=== PATIENT | male | born 1940 | race Caucasian/White ===

== ENCOUNTER 2020-08-20 16:01 | Inpatient (IN) ==
--- NOTE | 2020-08-20 16:20 | ERNOTE ---
<Faustino Ford - Last Filed: 08/20/20 20:04> Neuro HPI ER Record Presenting Symptoms: other - syncope Time Seen by Provider: 08/20/20 16:08 Source: patient, EMS Exam Limitations: no limitations Allergies/Adverse Reactions: Allergies Allergy/AdvReac Type Severity Reaction Status Date / Time No Known Allergies Allergy Verified 08/20/20 16:08 Home Medications: HOME MEDICATIONS albuterol sulfate 90 mcg/actuation aerosol inhaler 2 puff IH Q6H PRN 03/14/18 [Last Taken Unknown] aspirin 81 mg tablet,delayed release 81 mg PO DAILY 03/14/18 [Last Taken Unknown] bimatoprost 0.01 % eye drops 1 drp OP DAILY ml 03/14/18 [Last Taken Unknown] cholecalciferol (vitamin D3) 25 mcg (1,000 unit) capsule 1,000 unit PO DAILY 03/14/18 [Last Taken Unknown] multivitamin 1 tab PO DAILY 03/14/18 [Last Taken Unknown] omega-3 fatty acids 1,000 mg capsule 1,000 mg PO DAILY 03/14/18 [Last Taken Unknown] fluticasone propionate 50 mcg/actuation nasal spray,suspension 1 spray ANTONIA DAILY #9.9 g 07/13/18 [Last Taken Unknown] fexofenadine 60 mg tablet 60 mg PO BID #60 tab 08/12/18 [Last Taken Unknown] terbinafine HCl 1 % topical cream 1 applic TP BID #30 g 04/25/19 [Last Taken Unknown] bisoprolol 10 mg-hydrochlorothiazide 6.25 mg tablet 1 tab PO DAILY #180 tab 06/16/19 [Last Taken Unknown] lovastatin 40 mg tablet See Rx Instructions .ROUTE .COMPLEX #180 unknown measurement unit code: not specified 04/03/20 [Last Taken Unknown] timolol 0.25 % eye drops 1 drp OP DAILY 06/21/20 [Last Taken Unknown] lisinopril 20 mg tablet 20 mg PO DAILY #90 tab 06/26/20 [Last Taken Unknown] glipizide 5 mg tablet 7.5 mg PO DAILY #45 tab 07/17/20 [Last Taken Unknown] blood-glucose meter See Rx Instructions .ROUTE .MEDSUPPLY #1 ea 08/08/20 [Last Taken Unknown] lancets 28 gauge See Dose Instructions .ROUTE .MEDSUPPLY #100 ea 08/09/20 [Last Taken Unknown] blood sugar diagnostic See Dose Instructions .ROUTE .MEDSUPPLY #100 ea 08/12/20 [Last Taken Unknown] traMADol HCL [Ultram] 50 - 100 mg PO QID PRN #10 tab 08/20/20 [Last Taken Unknown] - History of Present Illness Narrative: Patient states he was getting up to go to the kitchen to read and "woke up on the floor". He is not sure how long he had loss of consciousness. He was not able to get up on his own. He complains of right shoulder and right hip pain Onset: sudden onset Severity: moderate - Character of Deficits Baseline Cognition: Present: alert, oriented x 4 Baseline Gait: Present: walks w/o assistance Review of Systems - Review of Systems Constitutional: Absent: recent illness, fever, chills EYE: Absent: vision changes ENT: Absent: nose congestion, nasal drainage Respiratory: Absent: shortness of breath, cough Cardiology: Absent: chest pain, palpitations Gastrointestinal/Abdominal: Absent: nausea, vomiting Genitourinary: Absent: frequency, dysuria Musculoskeletal: Present: See HPI. 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 Guerrero; results normal History of hernia repair Onset Date: Unknown Family History: Family History (Last Reviewed 08/20/20 @ 16:14 by Faustino Ford DO) Father Myocardial infarction Diabetes Mother Myocardial infarction Diabetes Social History: (Last Reviewed 08/20/20 @ 16:14 by Faustino Ford DO) Social History: adopted: No Marital status: lives independently: Yes household members: spouse current occupational status: retired Highest level of school completed/degree received: GED or equivalent Service: No Tobacco: Smoking Status: Current every day smoker tobacco type: cigarettes Smoking cigarettes per day: 6 Alcohol: alcohol intake: current Alcohol type: beer alcohol intake frequency: a few times a month details: couple beers a month Substance Use: substance use type: does not use Dietary Habits: caffeine: Yes Exercise: frequency: does not exercise Physical Exam - Physical Exam General Appearance: Present: wd/wn, alert, no apparent distress Head Exam: Present: normal inspection, no evidence of injury Eye Exam: Normal inspection: bilateral, PERRL: bilateral Neck: Present: normal inspection, nontender, supple, full range of motion Respiratory: Present: no respiratory distress, no accessory muscle use, wheezing Cardiovascular/Chest: Present: regular rate, rhythm, no murmur Gastrointestinal/Abdominal: Present: normal bowel sounds, nontender, nondistended Extremity Exam: Present: decreased range of motion - Right shoulder and right hip, bony tenderness - Proximal right humerus and proximal right femur Neurological Exam: Present: alert, oriented, normal mood/affect, no motor/sensory deficits Skin Exam: Present: normal color, warm/dry Lymphatic Exam: Present: no adenopathy Laurie Coma Scale - Assess Eye Opening: Spontaneous Motor: Obeys Commands Verbal: Oriented - Total Coma Scale Total: 15 Progress - Results and Orders Patient's Lab Results:: I have reviewed the patient's lab results. Results and Orders: Laboratory Tests 08/20/20 08/20/20 08/20/20 16:30 16:30 17:50 WBC 14.7 H Hgb 12.8 L Hct 40.8 L Neutrophils % 70.9 Sodium 135 Potassium 4.0 Chloride 100 Carbon Dioxide 23.9 L Anion Gap 15.1 H BUN 15 Creatinine 0.65 Random Glucose 124 H Calcium 8.7 Total Bilirubin 0.3 AST 50 H ALT 75 H Albumin 2.7 L Urine Color Yellow Urine Appearance Clear Urine pH 5.5 Ur Specific Alba 1.025 Urine Protein Negative Urine Glucose (UA) Negative Urine Ketones Negative Urine Blood Negative Urine Nitrate Negative Ur Leukocyte Esterase Negative Urine Culture Comments No culture indicated Ethyl Alcohol Less than 3.0 - Vital Signs Patient's Vital Signs:: I have reviewed the patient's vital signs. - EKG EKG #1 EKG: NSR, RBBB, nonspecific ST T wave changes EKG read: Interp. by me - X-Ray X-Ray #1 X-Ray: shoulder Interpretation: Reviewed by me X-ray Comments: Findings: Diffuse decreased bony mineralization. There is an acute anterior dislocation of the glenohumeral joint. No visible fracture of the humeral head or the glenoid is appreciated on the given views. There is degenerative change of the glenoid and the AC joint. There is soft tissue swelling. IMPRESSION: ACUTE ANTERIOR DISLOCATION OF THE RIGHT SHOULDER Electronically signed by Geo Nicholas D.O.. X-Ray #2 X-Ray: hip Interpretation: Reviewed by me X-ray Comments: Findings: Diffuse decreased bony mineralization. No acute fracture or dislocation is identified. There is degenerative change of the bilateral hips, bilateral SI joints and visualized spine. No soft tissue swelling appreciated. IMPRESSION: NO ACUTE PROCESS. Electronically signed by Geo Nicholas D.O.. - CT/Ultrasound CT/Ultrasound Narrative: CT head without: Findings: There is scattered periventricular and subcortical white matter hypodensities consistent with chronic microvascular ischemic white matter disease. There is diffuse brain atrophy with associated increasing size of the CSF containing spaces. There is no acute loss of malloy-white differentiation appreciated. There is no mass effect or midline shift. No intra-axial or extra axial blood products identified. The visualized paranasal sinuses and mastoid air cells are clear. The skull base and calvarium are intact. IMPRESSION: NO ACUTE INTRACRANIAL ABNORMALITY IDENTIFIED. Electronically signed by Geo Nicholas D.O.. - Progress/Reassessment Progress:: Improved Progress Note-Subjective: 08/20/20 20:[address] Hunter and he states that if the patient cannot bear weight despite x-rays looking normal CT would be in order. - Transfer of Care Physician Sign Out: Faustino Ford Receiving Physician: Zachary Parrish Pending Results: CT/MRI results Expected Disposition: Admit Procedures Date and Time: 08/20/20 19:00 Joint Reduction Site: shoulder (R) Conscious Sedation: Yes - Per anesthesia Reduction Attempts: 2 Pre-Procedure NV Exam: Yes - Normal Post-Procedure NV Exam: Yes - Normal Post Joint Reduction Film: joint reduced Complications: Pt bo procedure well Immediate Post Procedure Note: Procedure right shoulder reduction. Physician[facility] DO, [facility] per anesthesia. Description. Patient was sedated per anesthesia. Initial reduction attempt. To reduce the shoulder but repeat shoulder films found the humeral head had moved but not back into anatomic position. Second attempt easily reduced the shoulder into anatomic position. Postreduction films confirm anatomic position of the glenohumeral joint. No fractures noted. Patient tolerated procedure well Departure Clinical Impression: Orthostatic syncope Dislocation of right shoulder joint Qualifiers: Encounter type: initial encounter Qualified Code(s): S43.004A - Unspecified dislocation of right shoulder joint, initial encounter Pelvic fracture Qualifiers: Encounter type: initial encounter Pelvic bone location: other part of pelvis Fracture type: closed Qualified Code(s): S32.89XA - Fracture of other parts of pelvis, initial encounter for closed fracture - Departure Disposition: Short Term Hospital Inpatient Condition: Good Instructions: Syncope, [id number], Shoulder Dislocation, [id number] Additional Instructions: Call orthopedics for a follow up appointment. Keep the sling on until you are seen by orthopedics. Make sure you stand up slowly and carefully and do not start walking until you have stood for couple of minutes. Referrals: Monie Knight MD [Primary Care Provider] - Jason Hunter MD [Staff Physician] - Prescriptions: traMADol HCL [Ultram] 50 - 100 mg PO QID PRN #10 tab PRN Reason: Pain Transmission Status: Received by [facility], [place], [place] <Zachary Parrish - Last Filed: 08/20/20 21:10> Neuro HPI ER Record Immunizations: IMMUNIZATION HX Immunizations Up to Date Yes History of Influenza Vaccine Yes Hx Pneumococcal Vaccination No Medical History (Last Reviewed 08/20/20 @ 16:14 by Faustino Ford DO) Diarrhea (Acute) BMI 32.0-32.9,adult (Chronic) Cellulitis (Acute) Has received influenza vaccination in current influenza season (Acute) Onset Date: 07/18/18 Hypertension (Chronic) Diabetes mellitus (Chronic) BPH (benign prostatic hyperplasia) (Chronic) Hypercholesteremia (Chronic) 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 Guerrero; results normal History of hernia repair Onset Date: Unknown Family History: Family History (Last Reviewed 08/20/20 @ 16:14 by Faustino Ford DO) Father Myocardial infarction Diabetes Mother Myocardial infarction Diabetes Social History: (Last Reviewed 08/20/20 @ 16:14 by Faustino Ford DO) Social History: adopted: No Marital status: lives independently: Yes household members: spouse current occupational status: retired Highest level of school completed/degree received: GED or equivalent Service: No Tobacco: Smoking Status: Current every day smoker tobacco type: cigarettes Smoking cigarettes per day: 6 Alcohol: alcohol intake: current Alcohol type: beer alcohol intake frequency: a few times a month details: couple beers a month Substance Use: substance use type: does not use Dietary Habits: caffeine: Yes Exercise: frequency: does not exercise Progress - Vital Signs Vital Signs: Vital Signs 08/20/20 16:01 08/20/20 17:30 08/20/20 18:00 Temperature 36.1 C Pulse Rate 60 69 74 Respiratory Rate 18 16 16 Blood Pressure 129/69 160/71 H 161/71 H O2 Sat by Pulse Oximetry 92 L 94 93 08/20/20 18:30 08/20/20 18:58 08/20/20 19:09 Temperature Pulse Rate 76 72 92 Respiratory Rate 16 16 16 Blood Pressure 139/69 151/69 H 142/64 O2 Sat by Pulse Oximetry 96 96 96 08/20/20 19:30 08/20/20 20:55 Temperature Pulse Rate 82 68 Respiratory Rate 16 16 Blood Pressure 155/80 H 131/68 O2 Sat by Pulse Oximetry 96 96 - Transfer of Care Pending Results: CT/MRI results - CT results show inferior pubic ramus fracture as well as an acetabular fracture of the superior pubic ramus. Orthopedics on- call was sent a [employer] message to notify that the patient would be admitted to [facility]. I discussed case with Dr. Baron who accepted care. Plan - Plan Plan: Patient for admission to medicine for pain management as well as physical therapy Dr. Baron notified and accepted. Message sent via [employer] to Dr. Hunter on-call for orthopedics to notify them of the admission
[2020-08-20 16:39] LABS: Hematocrit 40.8 % (42.0-52.0); Hemoglobin 12.8 gm/dL (13.5-18.0); Mean Cell Volume 93.8 fl (78-100); Mean Corpuscular Hemoglobin 29.4 pg (27-31); Mean Corpuscular Hgb Conc 31.4 g/dl (32-36); Mean Platelet Volume 9.6 fl (8-11.3); Neutrophil # 10.5 K/mm3 (1.3-6.0); Neutrophil % 70.9 % (42-75.0); Platelet Count 249 K/mm3 (150-450); Red Blood Count 4.35 M/mm3 (4.7-6.0); Red Cell Distribution Width 12.4 % (11.5-14.0); White Blood Count 14.7 K/mm3 (4.0-10.5)
[2020-08-20 16:51] LABS: AST 50 U/L (0-48); Albumin * 2.7 gm/dl (3.4-5.0); Alkaline Phosphatase * 68 U/L (50-170); Anion Gap 15.1 mmol/L (6.8-13.8); BUN/Creatinine Ratio 23.1 (9.0-21.6); Bilirubin, Total 0.3 mg/dL (0.0-1.1); Blood Urea Nitrogen 15 mg/dL (6-23); Ca. Corrected For Albumin 9.4 mg/dL (8.4-10.2); Calcium * 8.7 mg/dL (7.9-10.9); Carbon Dioxide 23.9 mmol/L (24-32.6); Chloride 100 mmol/L (97-106); Glucose * 124 mg/dL (70-110); Sodium 135 mmol/L (132-142); Total Protein 6.6 gm/dL (6.2-8.2)
[2020-08-20] MEDS ORDERED: ONDANSETRON HCL/PF 2 MG/ML VIAL IV ONE ×2 (17:07→20:22)
[2020-08-20] MEDS ORDERED: MORPHINE SULFATE 2 MG/ML DISP.SYRIN ONE (17:07)
[2020-08-20] MEDS ORDERED: MORPHINE SULFATE 2 MG/ML DISP.SYRIN IV ONE (17:07)
[2020-08-20] MEDS ORDERED: ONDANSETRON HCL/PF 2 MG/ML VIAL ONE (17:08)
[2020-08-20 17:58] LABS: Urine Bilirubin Negative (NEGATIVE); Urine Blood Negative /ul (NEGATIVE); Urine Ketone Negative (NEGATIVE); Urine Nitrite Negative (NEGATIVE); Urine Protein Negative (NEGATIVE); Urine Specific Gravity 1.025 SP.GR. (1.005-1.030); Urine Urobilinogen Normal (NORMAL); Urine pH 5.5 pH (5.0-7.0)
[2020-08-20 18:25] LABS: Urine Appearance Clear (CLEAR); Urine Bacteria TRACE; Urine Color Yellow; Urine RBC TRACE /hpf (0-5); Urine WBC TRACE /hpf (0-5)
[2020-08-20 18:32] LABS: ALT 75 U/L (19-67)
--- NOTE | 2020-08-20 19:00 | ANES ---
Anesthesia Pre Procedure Eval Vitals/Labs: Last Vital Signs Temp 36.1 C 08/20/20 16:01 Pulse 72 08/20/20 18:58 Resp 16 08/20/20 18:58 BP 151/69 H 08/20/20 18:58 Pulse Ox 96 08/20/20 18:58 HOME MEDICATIONS albuterol sulfate 90 mcg/actuation aerosol inhaler 2 puff IH Q6H PRN 03/14/18 [Last Taken Unknown] aspirin 81 mg tablet,delayed release 81 mg PO DAILY 03/14/18 [Last Taken Unknown] bimatoprost 0.01 % eye drops 1 drp OP DAILY ml 03/14/18 [Last Taken Unknown] cholecalciferol (vitamin D3) 25 mcg (1,000 unit) capsule 1,000 unit PO DAILY 03/14/18 [Last Taken Unknown] multivitamin 1 tab PO DAILY 03/14/18 [Last Taken Unknown] omega-3 fatty acids 1,000 mg capsule 1,000 mg PO DAILY 03/14/18 [Last Taken Unknown] fluticasone propionate 50 mcg/actuation nasal spray,suspension 1 spray ANTONIA DAILY #9.9 g 07/13/18 [Last Taken Unknown] fexofenadine 60 mg tablet 60 mg PO BID #60 tab 08/12/18 [Last Taken Unknown] terbinafine HCl 1 % topical cream 1 applic TP BID #30 g 04/25/19 [Last Taken Unknown] bisoprolol 10 mg-hydrochlorothiazide 6.25 mg tablet 1 tab PO DAILY #180 tab 06/16/19 [Last Taken Unknown] lovastatin 40 mg tablet See Rx Instructions .ROUTE .COMPLEX #180 unknown measurement unit code: not specified 04/03/20 [Last Taken Unknown] timolol 0.25 % eye drops 1 drp OP DAILY 06/21/20 [Last Taken Unknown] lisinopril 20 mg tablet 20 mg PO DAILY #90 tab 06/26/20 [Last Taken Unknown] glipizide 5 mg tablet 7.5 mg PO DAILY #45 tab 07/17/20 [Last Taken Unknown] blood-glucose meter See Rx Instructions .ROUTE .MEDSUPPLY #1 ea 08/08/20 [Last Taken Unknown] lancets 28 gauge See Dose Instructions .ROUTE .MEDSUPPLY #100 ea 08/09/20 [Last Taken Unknown] blood sugar diagnostic See Dose Instructions .ROUTE .MEDSUPPLY #100 ea 08/12/20 [Last Taken Unknown] Allergies/Adverse Reactions: Allergies Allergy/AdvReac Type Severity Reaction Status Date / Time No Known Allergies Allergy Verified 08/20/20 16:08 - Planned Procedure Planned Procedure: closed reduction rt shoulder Medication List Reviewed:: Yes Allergies Verified: Yes Medical History (Last Reviewed 08/20/20 @ 18:59 by Mil Winston CRNA) Diarrhea (Acute) BMI 32.0-32.9,adult (Chronic) Cellulitis (Acute) Has received influenza vaccination in current influenza season (Acute) Onset Date: 07/18/18 Hypertension (Chronic) Diabetes mellitus (Chronic) BPH (benign prostatic hyperplasia) (Chronic) Hypercholesteremia (Chronic) 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 Guerrero; results normal History of hernia repair Onset Date: Unknown Family History (Last Reviewed 08/20/20 @ 18:59 by Mil Winston CRNA) Father Diabetes Myocardial infarction Mother Diabetes Myocardial infarction - Family Anesthesia History Family History:: no untoward family reactions to anesthesia - Airway/Neck/Teeth Within Normal Limits:: Yes Teeth Condition: intact Neck Exam: full range of motion Mallampatti Score: 2 Thyromental (T-M) distance: > 6 cm Mandibulo Hyoid distance: > 3 cm - Respiratory Respiratory History: COPD Smoking Status: Current every day smoker Discussed smoking cessation including day of surgery: Yes Sleep Apnea currently treated: No Sleep Apnea by current assessment: No - Cardiovascular Cardiac History: hypertension, hyperlipidemia Tolerate Activity: Poor Heart Sounds: S1 & S2, Regular - Gastrointestinal NPO since: 1100 - Anesthesia Assessment and Plan ASA Class: PS, III, E Anesthesia Type Plan: MAC Planned difficult intubation/equipment available: No
--- NOTE | 2020-08-20 19:00 | ANES ---
Post Anesthesia Discharge - Transfer of Care Transfer of Care handoff given to nurse: Yes - Anesthesia Post Op Note Anesthesia Post Op Note: Care transferred to EGG SEPARATOR
--- NOTE | 2020-08-20 19:01 | ANES ---
Post Anesthesia Assessment - Vital Signs Vitals: Last Vital Signs Temp 36.1 C 08/20/20 16:01 Pulse 72 08/20/20 18:58 Resp 16 08/20/20 18:58 BP 151/69 H 08/20/20 18:58 Pulse Ox 96 08/20/20 18:58 Airway Patency: Normal - Mental Status Level Of Consciousness: Awake - Pain Level Pain Score: 2 - N/V Assessment Nausea/Vomiting Presence: None Dehydration:: No
[2020-08-20] MEDS ORDERED: traMADol HCL 50 MG TABLET PO ONE (19:09)
[2020-08-20] MEDS ORDERED: MORPHINE SULFATE 4 MG/ML SYRG IV ONE (20:22)
[2020-08-21] MEDS: oxyCODONE HCL/ACETAMINOPHEN 1 TAB TABLET PO PRN ×3 (07:30→19:35)
--- NOTE | 2020-08-21 14:13 | HP ---
Chief Complaint - Chief Complaint Date of Service: 08/21/20 Time of Service: 09:00 Chief Complaint: Fall, hip pain, shoulder pain History of Present Illness: Dave was seen in the ER after a fall with right shoulder pain and bilateral hip pain. Imaging in the ER showed right shoulder dislocation and "1. ACUTE FRACTURE OF THE RIGHT INFERIOR PUBIC RAMI WITH MINIMAL DISPLACEMENT. 2. ACUTE NONDISPLACED FRACTURE OF THE ANTERIOR INFERIOR RIGHT ACETABULUM NEAR THE SUPERIOR PUBIC RAMI JUNCTION." Shoulder was reduced in the ER and he was placed in a shoulder sling. Imaging were discussed with orthopedics who report patient may be weight bearing as tolerated and may be admitted for therapy and pain control. He denies any other medical concerns. He reports slipping and falling and no medical concerns for his fall. He reports pain is 6/10. 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 Guerrero; results normal History of hernia repair Onset Date: Unknown Family History: Family History (Last Reviewed 08/20/20 @ 22:52 by Mariajose Rosales RN) Father Diabetes Myocardial infarction Mother Diabetes Myocardial infarction Social History: (Last Reviewed 08/20/20 @ 22:52 by Mariajose Rosales RN) Social History: adopted: No Marital status: lives independently: Yes household members: spouse current occupational status: retired Highest level of school completed/degree received: GED or equivalent Service: No Tobacco: Smoking Status: Current every day smoker tobacco type: cigarettes Smoking cigarettes per day: 6 Alcohol: alcohol intake: current Alcohol type: beer alcohol intake frequency: a few times a month details: couple beers a month Substance Use: substance use type: does not use Dietary Habits: caffeine: Yes Exercise: frequency: does not exercise Review Of Systems (GEN) - Review of Systems Generalized/Overall Review: Present: Weakness. Absent: Chills, Fever EENTM: Present: No Symptoms Reported Respiratory: Absent: Cough, Shortness of Breath Cardiac: Absent: Chest Pain, Edema Abdominal: Absent: Nausea, Vomiting Genitourinary: Present: No Symptoms Reported Musculoskeletal: Present: Joint Pain Neurological: Present: No Symptoms Reported Skin: Present: No Symptoms Reported Endocrine: Present: No Symptoms Reported Immunizations: IMMUNIZATION HX Immunizations Up to Date Yes History of Influenza Vaccine Yes Hx Pneumococcal Vaccination No Allergies/Adverse Reactions: Allergies Allergy/AdvReac Type Severity Reaction Status Date / Time No Known Allergies Allergy Verified 08/20/20 16:08 Home Medications: HOME MEDICATIONS aspirin 81 mg tablet,delayed release 81 mg PO DAILY 03/14/18 [Last Taken Un known] bimatoprost 0.01 % eye drops 1 drp OP DAILY ml 03/14/18 [Last Taken Unknown] cholecalciferol (vitamin D3) 25 mcg (1,000 unit) capsule 1,000 unit PO DAILY 03/14/18 [Last Taken Unknown] bisoprolol 10 mg-hydrochlorothiazide 6.25 mg tablet 1 tab PO DAILY #180 tab 06/16/19 [Last Taken Unknown] lovastatin 40 mg tablet See Rx Instructions .ROUTE .COMPLEX #180 unknown measurement unit code: not specified 04/03/20 [Last Taken Unknown] timolol 0.25 % eye drops 1 drp OP DAILY 06/21/20 [Last Taken Unknown] lisinopril 20 mg tablet 20 mg PO DAILY #90 tab 06/26/20 [Last Taken Unknown] glipizide 5 mg tablet 7.5 mg PO DAILY #45 tab 07/17/20 [Last Taken Unknown] blood-glucose meter See Rx Instructions .ROUTE .MEDSUPPLY #1 ea 08/08/20 [Last Taken Unknown] lancets 28 gauge See Dose Instructions .ROUTE .MEDSUPPLY #100 ea 08/09/20 [Last Taken Unknown] blood sugar diagnostic See Dose Instructions .ROUTE .MEDSUPPLY #100 ea 08/12/20 [Last Taken Unknown] Exam - Exam Vital Signs: Vital Signs - Last Taken Temp 36.3 C 08/21/20 10:00 Pulse 73 08/21/20 10:00 Resp 22 H 08/21/20 10:00 BP 127/58 08/21/20 10:00 Pulse Ox 88 L 08/21/20 10:00 Constitutional: Present: Alert, Oriented x3, Cooperative ENT Exam: Present: hearing grossly normal Eye Exam: bilateral eye: normal inspection Respiratory: Present: lungs clear, normal breath sounds, no respiratory distress Cardiovascular/Chest: Present: regular rate, rhythm, no edema Peripheral Pulses: radial (R): 2+, radial (L): 2+ Abdomen: Present: Normal bowel sounds, soft, nontender, nondistended, no rebound tenderness Skin Exam: Present: normal color, warm/dry, no cyanosis Appearance: Present: appropriate appearance, appropriate insight Eye contact: Present: cooperative, good eye contact, normal speech Thoughts: Present: normal thought pattern, no apparent hallucination Diagnostic Studies: Abnormal Lab Results 08/20/20 08/20/20 Range/Units 16:30 16:30 WBC 14.7 H (4.0-10.5) K/mm3 RBC 4.35 L (4.7-6.0) M/mm3 Hgb 12.8 L (13.5-18.0) gm/dL Hct 40.8 L (42.0-52.0) % MCHC 31.4 L (32-36) g/dl Immature Gran % (Auto) 1.40 H (0.001-0.429) % Immature Gran # (Auto) 0.20 H (0.000-0.0310) K/mm3 Lymphocytes % 16.8 L (20-51) % Monocytes % 9.2 H (0.0-9) % Neutrophils # 10.5 H (1.3-6.0) K/mm3 Monocytes # 1.4 H (0.0-1.0) k/mm3 Carbon Dioxide 23.9 L (24-32.6) mmol/L Anion Gap 15.1 H (6.8-13.8) mmol/L BUN/Creatinine Ratio 23.1 H (9.0-21.6) Random Glucose 124 H (70-110) mg/dL AST 50 H (0-48) U/L ALT 75 H (19-67) U/L Albumin 2.7 L (3.4-5.0) gm/dl Laboratory Results WBC 14.7 K/mm3 (4.0-10.5) H 08/20/20 16:30 RBC 4.35 M/mm3 (4.7-6.0) L 08/20/20 16:30 Hgb 12.8 gm/dL (13.5-18.0) L 08/20/20 16:30 Hct 40.8 % (42.0-52.0) L 08/20/20 16:30 MCV 93.8 fl (78-100) 08/20/20 16:30 MCH 29.4 pg (27-31) 08/20/20 16:30 MCHC 31.4 g/dl (32-36) L 08/20/20 16:30 RDW 12.4 % (11.5-14.0) 08/20/20 16:30 Plt Count 249 K/mm3 (150-450) 08/20/20 16:30 MPV 9.6 fl (8-11.3) 08/20/20 16:30 Immature Gran % (Auto) 1.40 % (0.001-0.429) H 08/20/20 16:30 Immature Gran # (Auto) 0.20 K/mm3 (0.000-0.0310) H 08/20/20 16:30 Neutrophils % 70.9 % (42-75.0) 08/20/20 16:30 Lymphocytes % 16.8 % (20-51) L 08/20/20 16:30 Monocytes % 9.2 % (0.0-9) H 08/20/20 16:30 Eosinophils % 1.0 % (0.0-3.0) 08/20/20 16:30 Basophils % 0.7 % (0.0-1.0) 08/20/20 16:30 Nucleated RBC % 0.0 k/mm3 (0-1) 08/20/20 16:30 Neutrophils # 10.5 K/mm3 (1.3-6.0) H 08/20/20 16:30 Lymphocytes # 2.47 k/mm3 (1.5-3.5) 08/20/20 16:30 Monocytes # 1.4 k/mm3 (0.0-1.0) H 08/20/20 16:30 Eosinophils # 0.1 k/mm3 (0.0-0.7) 08/20/20 16:30 Absolute Basophils 0.1 k/mm3 (0.0-0.1) 08/20/20 16:30 Sodium 135 mmol/L (132-142) 08/20/20 16:30 Plasma Sodium 135 mmol/L (130-142) 08/20/20 16:30 Potassium 4.0 mmol/L (3.4-4.6) 08/20/20 16:30 Chloride 100 mmol/L (97-106) 08/20/20 16:30 Carbon Dioxide 23.9 mmol/L (24-32.6) L 08/20/20 16:30 Anion Gap 15.1 mmol/L (6.8-13.8) H 08/20/20 16:30 BUN 15 mg/dL (6-23) 08/20/20 16:30 Creatinine 0.65 mg/dL (0.4-1.4) 08/20/20 16:30 Est GFR (Non-Af Amer) 126 mL/min (60-130) D 08/20/20 16:30 BUN/Creatinine Ratio 23.1 (9.0-21.6) H 08/20/20 16:30 Random Glucose 124 mg/dL (70-110) H 08/20/20 16:30 Calcium 8.7 mg/dL (7.9-10.9) 08/20/20 16:30 Calcium Adj for Albumin 9.4 mg/dL (8.4-10.2) 08/20/20 16:30 Total Bilirubin 0.3 mg/dL (0.0-1.1) 08/20/20 16:30 AST 50 U/L (0-48) H 08/20/20 16:30 ALT 75 U/L (19-67) H 08/20/20 16:30 Alkaline Phosphatase 68 U/L (50-170) 08/20/20 16:30 Total Protein 6.6 gm/dL (6.2-8.2) 08/20/20 16:30 Albumin 2.7 gm/dl (3.4-5.0) L 08/20/20 16:30 Urine Color Yellow 08/20/20 17:50 Urine Appearance Clear (CLEAR) 08/20/20 17:50 Urine pH 5.5 pH (5.0-7.0) 08/20/20 17:50 Ur Specific [place] 1.025 SP.GR. (1.005-1.030) 08/20/20 17:50 Urine Protein Negative mg/dL (NEGATIVE) 08/20/20 17:50 Urine Glucose (UA) Negative mg/dL (NEGATIVE) 08/20/20 17:50 Urine Ketones Negative mg/dL (NEGATIVE) 08/20/20 17:50 Urine Blood Negative /ul (NEGATIVE) 08/20/20 17:50 Urine Nitrate Negative (NEGATIVE) 08/20/20 17:50 Urine Bilirubin Negative mg/dl (NEGATIVE) 08/20/20 17:50 Urine Urobilinogen Normal EU/dl (NORMAL) 08/20/20 17:50 Ur Leukocyte Esterase Negative /ul (NEGATIVE) 08/20/20 17:50 Urine RBC Trace /hpf (0-5) 08/20/20 17:50 Urine WBC Trace /hpf (0-5) 08/20/20 17:50 Ur Epithelial Cells Trace /hpf (0-5) 08/20/20 17:50 Urine Bacteria Trace (NONE) 08/20/20 17:50 Urine Culture Comments No culture indicated 08/20/20 17:50 Ethyl Alcohol Less than 3.0 mg/dL (0.0-10.0) 08/20/20 16:30 SARS-CoV-2 (PCR) Not detected (NotDetected) 08/20/20 20:51 Assessment/Plan - Narrative Narrative: Dave is an 79 yo male admitted for fall with right shoulder dislocation and hill sachs and bankart fractures along with pubic rami fractures. Will admit to observation for pain control and will consult therapy. Will evaluate to see if he may be discharged to home vs need rehab at nursing facility. - Assessment/Plan (1) Dislocation of right shoulder joint Problem: Acute Qualifiers: Encounter type: initial encounter Qualified Code(s): S43.004A - Unspecified dislocation of right shoulder joint, initial encounter (2) Pelvic fracture Problem: Acute Qualifiers: Encounter type: initial encounter Pelvic bone location: other part of pelvis Fracture type: closed Qualified Code(s): S32.89XA - Fracture of other parts of pelvis, initial encounter for closed fracture
[2020-08-21] MEDS: traZODone HCL 50 MG TABLET PO SCH (20:24)
[2020-08-21] MEDS: hydrOXYzine HCL 25 MG TABLET PO PRN (22:41)
[2020-08-21] MEDS ORDERED: BISOPROLOL PO ONE (22:45)
[2020-08-21] MEDS ORDERED: LISINOPRIL 20 MG TABLET PO ONE (22:45)
[2020-08-21] MEDS ORDERED: HYDROCHLOROTHIAZIDE PO ONE (22:45)
[2020-08-22] MEDS: oxyCODONE HCL/ACETAMINOPHEN 1 TAB TABLET PO PRN ×2 (02:30→20:53)
[2020-08-22] MEDS: glipiZIDE 5 MG TABLET PO SCH ×2 (07:27→10:08)
[2020-08-22] MEDS ORDERED: LISINOPRIL 20 MG TABLET PO SCH (09:00)
[2020-08-22] MEDS ORDERED: TIMOLOL MALEATE 50 DROP BTL EACHEYE SCH (09:00)
[2020-08-22 09:07] LABS: Albumin * 2.5 gm/dl (3.4-5.0); Anion Gap 10.5 mmol/L (6.8-13.8); BUN/Creatinine Ratio 16.5 (9.0-21.6); Bilirubin, Total 0.8 mg/dL (0.0-1.1); Ca. Corrected For Albumin 9.9 mg/dL (8.4-10.2); Hematocrit 39.1 % (42.0-52.0); Hemoglobin 12.3 gm/dL (13.5-18.0); Mean Cell Volume 93.5 fl (78-100); Mean Corpuscular Hemoglobin 29.4 pg (27-31); Mean Corpuscular Hgb Conc 31.5 g/dl (32-36); Mean Platelet Volume 10.2 fl (8-11.3); Platelet Count 268 K/mm3 (150-450); Potassium 3.5 mmol/L (3.4-4.6); Red Blood Count 4.18 M/mm3 (4.7-6.0); Red Cell Distribution Width 12.8 % (11.5-14.0); Total Protein 6.5 gm/dL (6.2-8.2); White Blood Count 18.7 K/mm3 (4.0-10.5)
[2020-08-22 09:10] LABS: Total Cells Counted 100
[2020-08-22 09:22] LABS: Band 2 % (0-2.0); Lymphocyte 8 % (20-51); Monocyte 7 % (0-9); Neutrophil 83 % (42-75); Neutrophil # 15.5 K/mm3 (1.3-6.0); Platelet Estimate Normal (NORMAL); RBC Morphology Normal (NORMAL)
[2020-08-22] MEDS: CHOLECALCIFEROL 1,000 UNIT CAPSULE PO SCH (10:05)
[2020-08-22] MEDS: ROSUVASTATIN CALCIUM 10 MG TABLET PO SCH (10:06)
[2020-08-22] MEDS: ASPIRIN 81 MG TABLET.DR PO SCH (10:06)
[2020-08-22] MEDS: BISOPROLOL PO SCH (10:08)
[2020-08-22] MEDS: LISINOPRIL 20 MG TABLET PO SCH (10:08)
[2020-08-22] MEDS: HYDROCHLOROTHIAZIDE PO SCH (10:08)
[2020-08-22] MEDS: DEXTROSE 5%-0.5 NORMAL SALINE 1,000 ML IV PRN (10:30)
[2020-08-22] MEDS ORDERED: AZITHROMYCIN 250 MG TABLET PO ONE (11:09)
[2020-08-22] MEDS: BIMATOPROST 25 DROP BTL OP SCH (12:32)
[2020-08-22] MEDS: ALBUTEROL SULFATE/IPRATROPIUM 3 ML NEBU IH SCH ×3 (12:43→18:16)
[2020-08-22] MEDS: TIMOLOL MALEATE 50 DROP BTL EACHEYE SCH (20:09)
[2020-08-22] MEDS: traZODone HCL 50 MG TABLET PO SCH (20:10)
[2020-08-22] MEDS: hydrOXYzine HCL 25 MG TABLET PO PRN (20:53)
--- NOTE | 2020-08-22 21:17 | PN ---
Subjective - Date and Time Seen Date: 08/22/20 Time: 16:00 Subjective Narrative: Dave had an episode of respiratory failure with hypoxia of 86% and blood pressure of 82/44. His WBC annika from 14k to 18k. He was placed on oxygen and a chest xray was obtained that showed right medial lung base pneumonia. He was started on rocephin/azithromycin, duonebs, cornet/incentive spirometer, and oxygen. His oral intake had been poor, he was given blood pressure medication overnight due to hypertension, and he was given pain medications due to fractures. He reports he has had a cough for weeks, but it has worsened in the last week. Objective - Vitals Vitals: Last Vital Signs Temp 36.5 C 08/22/20 18:00 Pulse 86 08/22/20 18:26 Resp 20 08/22/20 18:26 BP 128/57 08/22/20 18:00 Pulse Ox 93 08/22/20 18:16 - Abnormal Lab Findings Abnormal Lab Findings: Abnormal Lab Results 08/22/20 08/22/20 Range/Units 08:26 08:26 WBC 18.7 H D (4.0-10.5) K/mm3 RBC 4.18 L (4.7-6.0) M/mm3 Hgb 12.3 L (13.5-18.0) gm/dL Hct 39.1 L (42.0-52.0) % MCHC 31.5 L (32-36) g/dl Neutrophils % (Manual) 83 H (42-75) % Lymphocytes % (Manual) 8 L (20-51) % Neutrophils # (Manual) 15.5 H (1.3-6.0) K/mm3 Monocytes # (Manual) 1.3 H (0.0-1.0) k/mm3 Est GFR (Non-Af Amer) 55 L D (60-130) mL/min Random Glucose 180 H D (70-110) mg/dL AST 170 H (0-48) U/L Albumin 2.5 L (3.4-5.0) gm/dl - Exam Constitutional: Present: Alert, Oriented x3, Cooperative, Other - wearing right shoulder sling ENT Exam: Present: hearing grossly normal Respiratory: Present: rhonchi Cardiovascular/Chest: Present: regular rate, rhythm, no murmur Abdomen: Present: Normal bowel sounds, soft, nontender, nondistended Skin Exam: Present: normal color, warm/dry, no cyanosis Appearance: Present: appropriate appearance, appropriate insight Eye contact: Present: cooperative, good eye contact, normal speech Thoughts: Present: normal thought pattern, no apparent hallucination Assessment/Plan Plan Narrative: Dave is an 79 yo male with acute respiratory failure secondary to right middle lobe pneumonia. He was started on rocephin/azithromycin, oxygen to keep sats 90% or greater, scheduled duonebs every 6 hours, cornet, and incentive spirometer. I believe his pneumonia was developing over the last few weeks and likely contributed to his fall which caused him to fracture his pelvis and dislocate his right shoulder. He was hypotensive this morning but it was secondary to hypertensive medication he was given last night, decrease in his oral intake, and narcotics given for pain control. This was treated with fluids and holding his hypertension medications. I do not believe he has sepsis. Some findings of inflammatory response may be from the pneumonia but it is also complicated by his fractures causing pain and a reaction to poor oral intake and his pain medications. He was changed to inpatient status today as he failed outpatient treatment and has identified acute respiratory failure seconcdary to pneumonia which will require inpatient treatment. Anticipate he will need about 4 more days to treat pneumonia and wean from oxygen as well as strengthen from pelvic fractures. He may likely need skilled rehab following inpatient treatment for strengthening prior to returning home. - Problems/Diagnosis (1) Acute respiratory failure with hypoxia Problem: Acute (2) Right middle lobe pneumonia Problem: Acute Qualifiers: Pneumonia type: due to unspecified organism Qualified Code(s): J18.9 - Pneumonia, unspecified organism (3) Hypotension Problem: Acute Qualifiers: Hypotension type: hypotension due to drug Qualified Code(s): I95.2 - Hypotension due to drugs (4) Dislocation of right shoulder joint Problem: Acute Qualifiers: Encounter type: initial encounter Qualified Code(s): S43.004A - Unspecified dislocation of right shoulder joint, initial encounter (5) Pelvic fracture Problem: Acute Qualifiers: Encounter type: initial encounter Pelvic bone location: other part of pelvis Fracture type: closed Qualified Code(s): S32.89XA - Fracture of other parts of pelvis, initial encounter for closed fracture (6) Type II diabetes mellitus Problem: Chronic Qualifiers: Diabetes mellitus correction insulin use: without correction use Diabetes mellitus complication status: without complication Qualified Code(s): E11.9 - Type 2 diabetes mellitus without complications
[2020-08-23] MEDS: DEXTROSE 5%-0.5 NORMAL SALINE 1,000 ML IV PRN (00:02)
[2020-08-23] MEDS: ALBUTEROL SULFATE/IPRATROPIUM 3 ML NEBU IH SCH ×4 (00:30→18:06)
[2020-08-23] MEDS ORDERED: FUROSEMIDE 10 MG/ML VIAL IV ONE (03:31)
[2020-08-23 06:43] LABS: Hematocrit 34.1 % (42.0-52.0); Hemoglobin 11.1 gm/dL (13.5-18.0); Mean Cell Volume 90.9 fl (78-100); Mean Corpuscular Hemoglobin 29.6 pg (27-31); Mean Corpuscular Hgb Conc 32.6 g/dl (32-36); Mean Platelet Volume 10.1 fl (8-11.3); Neutrophil # 11.1 K/mm3 (1.3-6.0); Neutrophil % 75.6 % (42-75.0); Platelet Count 227 K/mm3 (150-450); Red Blood Count 3.75 M/mm3 (4.7-6.0); Red Cell Distribution Width 12.8 % (11.5-14.0); White Blood Count 14.7 K/mm3 (4.0-10.5)
[2020-08-23 06:44] LABS: Total Cells Counted 100
[2020-08-23 06:51] LABS: Albumin * 2.2 gm/dl (3.4-5.0); Anion Gap 11.8 mmol/L (6.8-13.8); BUN/Creatinine Ratio 26.4 (9.0-21.6); Bilirubin, Total 0.9 mg/dL (0.0-1.1); Ca. Corrected For Albumin 9.5 mg/dL (8.4-10.2); Calcium * 8.4 mg/dL (7.9-10.9); Carbon Dioxide 29.7 mmol/L (24-32.6); Potassium 3.5 mmol/L (3.4-4.6); Total Protein 5.7 gm/dL (6.2-8.2)
[2020-08-23 07:37] LABS: Basophil 1 % (0-1); Lymphocyte 8 % (20-51); Monocyte 9 % (0-9); Neutrophil 82 % (42-75); Neutrophil # 12.1 K/mm3 (1.3-6.0); Platelet Estimate Normal (NORMAL); RBC Morphology Normal (NORMAL)
[2020-08-23] MEDS: oxyCODONE HCL/ACETAMINOPHEN 1 TAB TABLET PO PRN (07:44)
[2020-08-23] MEDS: glipiZIDE 5 MG TABLET PO SCH ×2 (07:44→10:36)
[2020-08-23] MEDS: BIMATOPROST 25 DROP BTL OP SCH (10:35)
[2020-08-23] MEDS: CHOLECALCIFEROL 1,000 UNIT CAPSULE PO SCH (10:36)
[2020-08-23] MEDS: ROSUVASTATIN CALCIUM 10 MG TABLET PO SCH (10:37)
[2020-08-23] MEDS: ASPIRIN 81 MG TABLET.DR PO SCH (10:37)
[2020-08-23] MEDS: AZITHROMYCIN 250 MG TABLET PO SCH (10:37)
[2020-08-23] MEDS: LISINOPRIL 20 MG TABLET PO SCH (10:42)
[2020-08-23] MEDS: HYDROCHLOROTHIAZIDE PO SCH (10:43)
[2020-08-23] MEDS: BISOPROLOL PO SCH (10:43)
--- NOTE | 2020-08-23 15:07 | PN ---
Subjective - Date and Time Seen Date: 08/23/20 Time: 11:45 Subjective Narrative: Dave reports not feeling any better today. No appetite. No energy to work with therapy. Nursing reports he declined lunch and only ate bites for breakfast. He is reportedly sleeping a lot. No fever, chills, nausea, or vomiting. Objective - Vitals Vitals: Last Vital Signs Temp 37.3 C 08/23/20 14:17 Pulse 88 08/23/20 14:17 Resp 20 08/23/20 14:17 BP 98/54 08/23/20 14:17 Pulse Ox 94 08/23/20 14:17 - Abnormal Lab Findings Abnormal Lab Findings: Abnormal Lab Results 08/23/20 08/23/20 Range/Units 06:33 06:33 WBC 14.7 H D (4.0-10.5) K/mm3 RBC 3.75 L (4.7-6.0) M/mm3 Hgb 11.1 L (13.5-18.0) gm/dL Hct 34.1 L (42.0-52.0) % Immature Gran % (Auto) 0.70 H (0.001-0.429) % Immature Gran # (Auto) 0.10 H (0.000-0.0310) K/mm3 Neutrophils % 75.6 H (42-75.0) % Neutrophils % (Manual) 82 H (42-75) % Lymphocytes % 10.9 L (20-51) % Lymphocytes % (Manual) 8 L (20-51) % Monocytes % 11.3 H (0.0-9) % Neutrophils # 11.1 H (1.3-6.0) K/mm3 Neutrophils # (Manual) 12.1 H (1.3-6.0) K/mm3 Lymphocytes # (Manual) 1.2 L (1.5-3.5) k/mm3 Monocytes # 1.7 H (0.0-1.0) k/mm3 Monocytes # (Manual) 1.3 H (0.0-1.0) k/mm3 BUN 24 H (6-23) mg/dL BUN/Creatinine Ratio 26.4 H (9.0-21.6) AST 194 H (0-48) U/L Total Protein 5.7 L (6.2-8.2) gm/dL Albumin 2.2 L (3.4-5.0) gm/dl - Exam Constitutional: Present: Oriented x3, Cooperative, Somnolent Respiratory: Present: rhonchi, wheezing Cardiovascular/Chest: Present: regular rate, rhythm, no murmur Abdomen: Present: Normal bowel sounds, soft, nontender, nondistended, no rebound tenderness Skin Exam: Present: normal color, warm/dry, no cyanosis Appearance: Present: appropriate appearance, appropriate insight Eye contact: Present: cooperative, good eye contact, normal speech Assessment/Plan Plan Narrative: He has decreased alertness and strength. His WBC is improved from 18k to 14k. I am hopeful that a change in his pain medication will help with more alertness a nd allow him to be more motivated to improve. Currently on 3lpm of oxygen but this may also be a reflection of the pain medications. I encouraged him to use his cornet and incentive spirometer more. Continue current antibiotic and breathing treatments. Episodes of hypoglycemia today due to diabetic medication while he is not eating. Will discontinue diabetic medications for now. Blood pressure is still low. Continue fluids. Will hold blood pressure medications. - Problems/Diagnosis (1) Acute respiratory failure with hypoxia Problem: Acute (2) Right middle lobe pneumonia Problem: Acute Qualifiers: Pneumonia type: due to unspecified organism Qualified Code(s): J18.9 - Pneumonia, unspecified organism (3) Hypotension Problem: Acute Qualifiers: Hypotension type: hypotension due to drug Qualified Code(s): I95.2 - Hypotension due to drugs (4) Dislocation of right shoulder joint Problem: Acute Qualifiers: Encounter type: initial encounter Qualified Code(s): S43.004A - Unspecified dislocation of right shoulder joint, initial encounter (5) Pelvic fracture Problem: Acute Qualifiers: Encounter type: initial encounter Pelvic bone location: other part of pelvis Fracture type: closed Qualified Code(s): S32.89XA - Fracture of other parts of pelvis, initial encounter for closed fracture (6) Type II diabetes mellitus Problem: Acute Qualifiers: Diabetes mellitus assisted insulin use: without terminal computer operator use Diabetes mellitus complication status: with hypoglycemia Diabetes mellitus complication detail: without coma Qualified Code(s): E11.649 - Type 2 diabetes mellitus with hypoglycemia without coma
[2020-08-23] MEDS: HYDROcodone/ACETAMINOPHEN 1 EACH TABLET PO PRN (17:53)
[2020-08-23] MEDS: TIMOLOL MALEATE 50 DROP BTL EACHEYE SCH (20:08)
[2020-08-23] MEDS: traZODone HCL 50 MG TABLET PO SCH (20:08)
[2020-08-24] MEDS: ALBUTEROL SULFATE/IPRATROPIUM 3 ML NEBU IH SCH ×4 (00:12→18:09)
[2020-08-24] MEDS: HYDROcodone/ACETAMINOPHEN 1 EACH TABLET PO PRN (04:37)
[2020-08-24 08:04] LABS: Mean Cell Volume 93.8 fl (78-100); Mean Corpuscular Hemoglobin 29.5 pg (27-31); Mean Corpuscular Hgb Conc 31.4 g/dl (32-36); Mean Platelet Volume 9.7 fl (8-11.3); Neutrophil % 66.4 % (42-75.0); Platelet Count 261 K/mm3 (150-450); Red Blood Count 3.73 M/mm3 (4.7-6.0)
[2020-08-24 08:59] LABS: Anion Gap 9.8 mmol/L (6.8-13.8); BUN/Creatinine Ratio 27.8 (9.0-21.6); Bilirubin, Total 0.8 mg/dL (0.0-1.1); Ca. Corrected For Albumin 9.3 mg/dL (8.4-10.2); Carbon Dioxide 30.2 mmol/L (24-32.6); Total Protein 5.2 gm/dL (6.2-8.2)
[2020-08-24] MEDS: BIMATOPROST 25 DROP BTL OP SCH (09:55)
[2020-08-24] MEDS: HYDROCHLOROTHIAZIDE PO SCH (09:55)
[2020-08-24] MEDS: BISOPROLOL PO SCH (09:55)
[2020-08-24] MEDS: ASPIRIN 81 MG TABLET.DR PO SCH (09:55)
[2020-08-24] MEDS: CHOLECALCIFEROL 1,000 UNIT CAPSULE PO SCH (09:55)
[2020-08-24] MEDS: AZITHROMYCIN 250 MG TABLET PO SCH (09:55)
[2020-08-24] MEDS: ROSUVASTATIN CALCIUM 10 MG TABLET PO SCH (09:55)
[2020-08-24] MEDS: traMADol HCL 50 MG TABLET PO PRN (11:15)
--- NOTE | 2020-08-24 14:26 | PN ---
Subjective - Date and Time Seen Date: 08/24/20 Time: 08:00 Subjective Narrative: Wakes up to talk, but easily falls asleep. He reports feeling tired, no appetite. Discussed pushing nutrition and staying active. Objective - Vitals Vitals: Last Vital Signs Temp 37.0 C 08/24/20 14:04 Pulse 69 08/24/20 14:04 Resp 14 08/24/20 14:04 BP 110/60 08/24/20 14:04 Pulse Ox 92 L 08/24/20 14:04 - Abnormal Lab Findings Abnormal Lab Findings: Abnormal Lab Results 08/24/20 08/24/20 Range/Units 07:46 07:46 WBC 12.0 H (4.0-10.5) K/mm3 RBC 3.73 L (4.7-6.0) M/mm3 Hgb 11.0 L (13.5-18.0) gm/dL Hct 35.0 L (42.0-52.0) % MCHC 31.4 L (32-36) g/dl Immature Gran % (Auto) 0.90 H (0.001-0.429) % Immature Gran # (Auto) 0.11 H (0.000-0.0310) K/mm3 Lymphocytes % 16.7 L (20-51) % Monocytes % 12.6 H (0.0-9) % Neutrophils # 8.0 H (1.3-6.0) K/mm3 Monocytes # 1.5 H (0.0-1.0) k/mm3 BUN 25 H (6-23) mg/dL BUN/Creatinine Ratio 27.8 H (9.0-21.6) AST 163 H (0-48) U/L ALT 97 H (19-67) U/L Total Protein 5.2 L (6.2-8.2) gm/dL Albumin 2.0 L (3.4-5.0) gm/dl - Exam Constitutional: Present: Oriented x3, Cooperative, No distress, Somnolent ENT Exam: Present: hearing grossly normal Respiratory: Present: rhonchi Cardiovascular/Chest: Present: regular rate, rhythm, no murmur Abdomen: Present: soft, nontender, nondistended, no rebound tenderness, hypoactive Skin Exam: Present: normal color, warm/dry, no cyanosis Assessment/Plan Plan Narrative: WBC is improved. Vitals stable, although still requiring oxygen. He remains somnolent and is not motivated to be active and eat. Will change hydrocodone for tramadol and see if this will improve his drive yet still control his pain. - Problems/Diagnosis (1) Acute respiratory failure with hypoxia Problem: Acute (2) Right middle lobe pneumonia Problem: Acute Qualifiers: Pneumonia type: due to unspecified organism Qualified Code(s): J18.9 - Pneumonia, unspecified organism (3) Hypotension Problem: Acute Qualifiers: Hypotension type: hypotension due to drug Qualified Code(s): I95.2 - Hypotension due to drugs (4) Dislocation of right shoulder joint Problem: Acute Qualifiers: Encounter type: initial encounter Qualified Code(s): S43.004A - Unspecified dislocation of right shoulder joint, initial encounter (5) Pelvic fracture Problem: Acute Qualifiers: Encounter type: initial encounter Pelvic bone location: other part of pelvis Fracture type: closed Qualified Code(s): S32.89XA - Fracture of other parts of pelvis, initial encounter for closed fracture (6) Type II diabetes mellitus Problem: Acute Qualifiers: Diabetes mellitus terminal computer operator insulin use: without terminal computer operator use Diabetes mellitus complication status: with hypoglycemia Diabetes mellitus complication detail: without coma Qualified Code(s): E11.649 - Type 2 diabetes mellitus with hypoglycemia without coma
[2020-08-24] MEDS: TIMOLOL MALEATE 50 DROP BTL EACHEYE SCH (20:49)
[2020-08-24] MEDS: traZODone HCL 50 MG TABLET PO SCH (20:50)
[2020-08-25] MEDS: ALBUTEROL SULFATE/IPRATROPIUM 3 ML NEBU IH SCH ×4 (00:13→18:16)
[2020-08-25] MEDS: traMADol HCL 50 MG TABLET PO PRN ×2 (03:43→11:33)
[2020-08-25] MEDS: ACETAMINOPHEN 500 MG TABLET PO PRN (09:12)
[2020-08-25] MEDS: BIMATOPROST 25 DROP BTL OP SCH (09:12)
[2020-08-25] MEDS: CHOLECALCIFEROL 1,000 UNIT CAPSULE PO SCH (09:14)
[2020-08-25] MEDS: ROSUVASTATIN CALCIUM 10 MG TABLET PO SCH (09:14)
[2020-08-25] MEDS: ASPIRIN 81 MG TABLET.DR PO SCH (09:14)
[2020-08-25] MEDS: AZITHROMYCIN 250 MG TABLET PO SCH (09:14)
[2020-08-25 10:13] LABS: Hematocrit 33.5 % (42.0-52.0); Hemoglobin 10.8 gm/dL (13.5-18.0); Mean Cell Volume 91.3 fl (78-100); Mean Corpuscular Hemoglobin 29.4 pg (27-31); Mean Corpuscular Hgb Conc 32.2 g/dl (32-36); Mean Platelet Volume 9.3 fl (8-11.3); Neutrophil # 5.6 K/mm3 (1.3-6.0); Neutrophil % 58.9 % (42-75.0); Platelet Count 292 K/mm3 (150-450); Red Blood Count 3.67 M/mm3 (4.7-6.0); Red Cell Distribution Width 12.7 % (11.5-14.0); White Blood Count 9.5 K/mm3 (4.0-10.5)
[2020-08-25] MEDS ORDERED: SENNOSIDES/DOCUSATE SODIUM 1 TAB TABLET PO ONE (10:24)
[2020-08-25 10:46] LABS: Anion Gap 11.4 mmol/L (6.8-13.8); BUN/Creatinine Ratio 24.4 (9.0-21.6); Bilirubin, Total 0.7 mg/dL (0.0-1.1); Ca. Corrected For Albumin 9.4 mg/dL (8.4-10.2); Calcium * 8.1 mg/dL (7.9-10.9); Carbon Dioxide 29.7 mmol/L (24-32.6); Potassium 4.1 mmol/L (3.4-4.6); Total Protein 5.3 gm/dL (6.2-8.2)
[2020-08-25] MEDS: POLYETHYLENE GLYCOL 3350 17 GM PACKET PO SCH (11:34)
--- NOTE | 2020-08-25 13:28 | PN ---
Subjective - Date and Time Seen Date: 08/25/20 Time: 09:00 Subjective Narrative: Dave reports feeling tired and no motivation. He reports not eating well. He has been working with [employer] and incentive spirometer. He denies shortness of breath, fever, chills, nausea or vomiting. Objective - Vitals Vitals: Last Vital Signs Temp 36.8 C 08/25/20 10:00 Pulse 67 08/25/20 13:12 Resp 20 08/25/20 13:12 BP 108/81 08/25/20 10:00 Pulse Ox 90 L 08/25/20 13:03 - Abnormal Lab Findings Abnormal Lab Findings: Abnormal Lab Results 08/25/20 08/25/20 Range/Units 09:56 09:56 RBC 3.67 L (4.7-6.0) M/mm3 Hgb 10.8 L (13.5-18.0) gm/dL Hct 33.5 L (42.0-52.0) % Immature Gran % (Auto) 0.60 H (0.001-0.429) % Immature Gran # (Auto) 0.06 H (0.000-0.0310) K/mm3 Monocytes % 12.8 H (0.0-9) % Eosinophils % 3.1 H (0.0-3.0) % Basophils % 1.1 H (0.0-1.0) % Monocytes # 1.2 H (0.0-1.0) k/mm3 BUN/Creatinine Ratio 24.4 H (9.0-21.6) Random Glucose 149 H D (70-110) mg/dL AST 97 H (0-48) U/L ALT 96 H (19-67) U/L Total Protein 5.3 L (6.2-8.2) gm/dL Albumin 2.0 L (3.4-5.0) gm/dl - Exam Constitutional: Present: Alert - more alert than yesterday, Oriented x3, Cooperative ENT Exam: Present: hearing grossly normal Respiratory: Present: rhonchi Cardiovascular/Chest: Present: regular rate, rhythm, no murmur Abdomen: Present: Normal bowel sounds, soft, nontender, nondistended Skin Exam: Present: normal color, warm/dry, no cyanosis Appearance: Present: appropriate appearance, appropriate insight Eye contact: Present: cooperative, good eye contact, normal speech Thoughts: Present: normal thought pattern, no apparent hallucination Assessment/Plan Plan Narrative: Dave is overall improved today. He appears more alert and his WBC has normalized today. Continue cornet, incentive spirometer, rocephin, azithromycin. He has not had a bowel movement in a few days per nursing, will start stool regimen. With normal WBC and improved alertness he may be able to discharge to nursing facility in the next 1-2 days for SNF. - Problems/Diagnosis (1) Acute respiratory failure with hypoxia Problem: Acute (2) Right middle lobe pneumonia Problem: Acute Qualifiers: Pneumonia type: due to unspecified organism Qualified Code(s): J18.9 - Pneumonia, unspecified organism (3) Hypotension Problem: Acute Qualifiers: Hypotension type: hypotension due to drug Qualified Code(s): I95.2 - Hypotension due to drugs (4) Dislocation of right shoulder joint Problem: Acute Qualifiers: Encounter type: initial encounter Qualified Code(s): S43.004A - Unspecified dislocation of right shoulder joint, initial encounter (5) Pelvic fracture Problem: Acute Qualifiers: Encounter type: initial encounter Pelvic bone location: other part of pelvis Fracture type: closed Qualified Code(s): S32.89XA - Fracture of other parts of pelvis, initial encounter for closed fracture (6) Type II diabetes mellitus Problem: Acute Qualifiers: Diabetes mellitus assisted insulin use: without long term care administrator use Diabetes mellitus complication status: with hypoglycemia Diabetes mellitus complication detail: without coma Qualified Code(s): E11.649 - Type 2 diabetes mellitus with hypoglycemia without coma
[2020-08-25] MEDS: traZODone HCL 50 MG TABLET PO SCH (20:05)
[2020-08-25] MEDS: TIMOLOL MALEATE 50 DROP BTL EACHEYE SCH (20:05)
[2020-08-25] MEDS: hydrOXYzine HCL 25 MG TABLET PO PRN (21:41)
[2020-08-26] MEDS: ALBUTEROL SULFATE/IPRATROPIUM 3 ML NEBU IH SCH ×4 (00:16→18:15)
[2020-08-26] MEDS: traMADol HCL 50 MG TABLET PO PRN ×2 (02:09→09:27)
[2020-08-26] MEDS: ACETAMINOPHEN 500 MG TABLET PO PRN (04:49)
[2020-08-26 08:20] LABS: Hematocrit 36.7 % (42.0-52.0); Hemoglobin 11.7 gm/dL (13.5-18.0); Mean Cell Volume 91.1 fl (78-100); Mean Corpuscular Hgb Conc 31.9 g/dl (32-36); Mean Platelet Volume 9.3 fl (8-11.3); Neutrophil # 5.8 K/mm3 (1.3-6.0); Neutrophil % 57.7 % (42-75.0); Platelet Count 343 K/mm3 (150-450); Red Blood Count 4.03 M/mm3 (4.7-6.0); Red Cell Distribution Width 12.5 % (11.5-14.0)
[2020-08-26 08:33] LABS: Albumin * 2.2 gm/dl (3.4-5.0); BUN/Creatinine Ratio 22.8 (9.0-21.6); Bilirubin, Total 0.8 mg/dL (0.0-1.1); Ca. Corrected For Albumin 9.4 mg/dL (8.4-10.2); Calcium * 8.3 mg/dL (7.9-10.9); Carbon Dioxide 30.8 mmol/L (24-32.6); Potassium 3.8 mmol/L (3.4-4.6); Total Protein 6.2 gm/dL (6.2-8.2)
[2020-08-26] MEDS: ASPIRIN 81 MG TABLET.DR PO SCH (08:41)
[2020-08-26] MEDS: CHOLECALCIFEROL 1,000 UNIT CAPSULE PO SCH (08:41)
[2020-08-26] MEDS: ROSUVASTATIN CALCIUM 10 MG TABLET PO SCH (08:42)
[2020-08-26] MEDS: BIMATOPROST 25 DROP BTL OP SCH (08:42)
[2020-08-26] MEDS: POLYETHYLENE GLYCOL 3350 17 GM PACKET PO SCH (08:42)
[2020-08-26] MEDS: AZITHROMYCIN 250 MG TABLET PO SCH (08:42)
[2020-08-26] MEDS: HYDROCHLOROTHIAZIDE PO SCH (11:46)
[2020-08-26] MEDS: BISOPROLOL PO SCH (11:46)
[2020-08-26] MEDS: hydrOXYzine HCL 25 MG TABLET PO PRN (20:15)
[2020-08-26] MEDS: TIMOLOL MALEATE 50 DROP BTL EACHEYE SCH (20:16)
[2020-08-26] MEDS: traZODone HCL 50 MG TABLET PO SCH (20:19)
--- NOTE | 2020-08-26 23:28 | PN ---
Subjective - Date and Time Seen Date: 08/26/20 Time: 08:45 Subjective Narrative: No fever, chills, nausea, or vomiting. Continues to require 2lpm of oxygen. Objective - Vitals Vitals: Last Vital Signs Temp 37.5 C 08/26/20 18:49 Pulse 105 H 08/26/20 18:49 Resp 20 08/26/20 18:49 BP 133/71 08/26/20 18:49 Pulse Ox 91 L 08/26/20 18:49 - Abnormal Lab Findings Abnormal Lab Findings: Abnormal Lab Results 08/26/20 08/26/20 Range/Units 07:56 07:56 RBC 4.03 L (4.7-6.0) M/mm3 Hgb 11.7 L (13.5-18.0) gm/dL Hct 36.7 L (42.0-52.0) % MCHC 31.9 L (32-36) g/dl Immature Gran % (Auto) 0.80 H (0.001-0.429) % Immature Gran # (Auto) 0.08 H (0.000-0.0310) K/mm3 Monocytes % 12.3 H (0.0-9) % Monocytes # 1.2 H (0.0-1.0) k/mm3 BUN/Creatinine Ratio 22.8 H (9.0-21.6) Random Glucose 161 H (70-110) mg/dL AST 85 H (0-48) U/L ALT 101 H (19-67) U/L Albumin 2.2 L (3.4-5.0) gm/dl - Exam Constitutional: Present: Alert, Oriented x3, Cooperative ENT Exam: Present: hearing grossly normal Respiratory: Present: no respiratory distress, rhonchi Cardiovascular/Chest: Present: regular rate, rhythm, no murmur Abdomen: Present: Normal bowel sounds, soft, nontender, nondistended, no rebound tenderness Skin Exam: Present: normal color, warm/dry, no cyanosis Assessment/Plan Plan Narrative: Continue to work with PT, continue antibiotics and attempt to wean from oxygen. Will repeat chest xray due to inability to wean off oxygen yet. May discharge to SNF in 1-2 days as he is overall medically stable and may just need a longer oxygen weaning period done as outpatient and strengthening with SNF. - Problems/Diagnosis (1) Acute respiratory failure with hypoxia Problem: Acute (2) Right middle lobe pneumonia Problem: Acute Qualifiers: Pneumonia type: due to unspecified organism Qualified Code(s): J18.9 - Pneumonia, unspecified organism (3) Hypotension Problem: Acute Qualifiers: Hypotension type: hypotension due to drug Qualified Code(s): I95.2 - Hypotension due to drugs (4) Dislocation of right shoulder joint Problem: Acute Qualifiers: Encounter type: initial encounter Qualified Code(s): S43.004A - Unspecified dislocation of right shoulder joint, initial encounter (5) Pelvic fracture Problem: Acute Qualifiers: Encounter type: initial encounter Pelvic bone location: other part of pelvis Fracture type: closed Qualified Code(s): S32.89XA - Fracture of other parts of pelvis, initial encounter for closed fracture (6) Type II diabetes mellitus Problem: Acute Qualifiers: Diabetes mellitus intermission coordinator insulin use: without longterm use Diabetes mellitus complication status: with hypoglycemia Diabetes mellitus complication detail: without coma Qualified Code(s): E11.649 - Type 2 diabetes mellitus with hypoglycemia without coma
[2020-08-27] MEDS: ALBUTEROL SULFATE/IPRATROPIUM 3 ML NEBU IH SCH ×2 (01:15→06:10)
[2020-08-27] MEDS: POLYETHYLENE GLYCOL 3350 17 GM PACKET PO SCH (08:19)
[2020-08-27] MEDS: BIMATOPROST 25 DROP BTL OP SCH (08:19)
[2020-08-27] MEDS: ROSUVASTATIN CALCIUM 10 MG TABLET PO SCH (08:20)
[2020-08-27] MEDS: CHOLECALCIFEROL 1,000 UNIT CAPSULE PO SCH (08:20)
[2020-08-27] MEDS: HYDROCHLOROTHIAZIDE PO SCH (08:20)
[2020-08-27] MEDS: BISOPROLOL PO SCH (08:20)
[2020-08-27] MEDS: ASPIRIN 81 MG TABLET.DR PO SCH (08:20)
--- NOTE | 2020-08-27 11:19 | DS ---
(1) Acute respiratory failure with hypoxia Problem: Resolved (2) Right middle lobe pneumonia Problem: Acute Qualifiers: Pneumonia type: due to unspecified organism Qualified Code(s): J18.9 - Pneumonia, unspecified organism (3) Hypotension Problem: Resolved Qualifiers: Hypotension type: hypotension due to drug Qualified Code(s): I95.2 - Hypotension due to drugs (4) Dislocation of right shoulder joint Problem: Acute Qualifiers: Encounter type: initial encounter Qualified Code(s): S43.004A - Unspecified dislocation of right shoulder joint, initial encounter (5) Pelvic fracture Problem: Acute Qualifiers: Encounter type: initial encounter Pelvic bone location: other part of pelvis Fracture type: closed Qualified Code(s): S32.89XA - Fracture of other parts of pelvis, initial encounter for closed fracture (6) Type II diabetes mellitus Problem: Chronic Qualifiers: Diabetes mellitus intermediate card tender insulin use: without intermediate card tender use Diabetes mellitus complication detail: without coma Date of Discharge:: 08/27/20 Hospital Course: Dave is an 79 yo male that was admitted for pain control and therapies for a right shoulder dislocation and fracture and pelvic fractures. He was initially admitted to observation but he developed acute respiratory failure early in hospital course and chest xray showed right middle lobe pneumonia. This was likely present on admission and was likely a contributor to causing him to fall and create the fractures in the first place as he was likely progressively getting weaker from the pneumonia. He was treated with rocephin and azithromycin and worked with therapy for strengthening. He had a leukocytosis but with antibiotics this normalized. Repeat chest xray showed improving pneumonia. He continued to require oxygen at 2lpm even at discharge. He appears to be medically stable and I believe that with improve strength from therapies at [facility] that he will be able to wean off of oxygen. He has been improving his strength with therapies here using a platform walker and this may be continued at [facility]. He may follow up with PCP and ortho as outpatient. Procedures Performed: none Results and Findings: Lab Pending Results 08/20/20 16:30: WBC 14.7 H, RBC 4.35 L, Hgb 12.8 L, Hct 40.8 L, MCV 93.8, MCH 29.4, MCHC 31.4 L, RDW 12.4, Plt Count 249, MPV 9.6, Immature Gran % (Auto) 1.40 H, Immature Gran # (Auto) 0.20 H, Neutrophils % 70.9, Lymphocytes % 16.8 L, Monocytes % 9.2 H, Eosinophils % 1.0, Basophils % 0.7, Nucleated RBC % 0.0, Neutrophils # 10.5 H, Lymphocytes # 2.47, Monocytes # 1.4 H, Eosinophils # 0.1, Absolute Basophils 0.1 08/20/20 16:30: Sodium 135, Plasma Sodium 135, Potassium 4.0, Chloride 100, Carbon Dioxide 23.9 L, Anion Gap 15.1 H, BUN 15, Creatinine 0.65, Est GFR (Non- Af Amer) 126 D, BUN/Creatinine Ratio 23.1 H, Random Glucose 124 H, Calcium 8.7, Calcium Adj for Albumin 9.4, Total Bilirubin 0.3, AST 50 H, ALT 75 H, Alkaline Phosphatase 68, Total Protein 6.6, Albumin 2.7 L, Ethyl Alcohol Less than 3.0 08/20/20 17:50: Urine Color Yellow, Urine Appearance Clear, Urine pH 5.5, Ur Specific [place] 1.025, Urine Protein Negative, Urine Glucose (UA) Negative, Urine Ketones Negative, Urine Blood Negative, Urine Nitrate Negative, Urine Bilirubin Negative, Urine Urobilinogen Normal, Ur Leukocyte Esterase Negative, Urine RBC Trace, Urine WBC Trace, Ur Epithelial Cells Trace, Urine Bacteria Trace, Urine Culture Comments No culture indicated 08/20/20 20:51: SARS-CoV-2 (PCR) Not detected 08/22/20 08:26: WBC 18.7 H D, RBC 4.18 L, Hgb 12.3 L, Hct 39.1 L, MCV 93.5, MCH 29.4, MCHC 31.5 L, RDW 12.8, Plt Count 268, MPV 10.2, Neutrophils % (Manual) 83 H, Band Neuts % (Manual) 2, Lymphocytes % (Manual) 8 L, Monocytes % (Manual) 7, Neutrophils # (Manual) 15.5 H, Lymphocytes # (Manual) 1.5, Monocytes # (Manual) 1.3 H, Platelet Estimate Normal, RBC Morphology Normal 08/22/20 08:26: Sodium 136, Plasma Sodium 137, Potassium 3.5, Chloride 99, Carbon Dioxide 30.0, Anion Gap 10.5, BUN 22, Creatinine 1.33 D, Est GFR (Non-Af Amer) 55 L D, BUN/Creatinine Ratio 16.5, Random Glucose 180 H D, Calcium 9.0, Calcium Adj for Albumin 9.9, Total Bilirubin 0.8, AST 170 H, ALT 58, Alkaline Phosphatase 62, Total Protein 6.5, Albumin 2.5 L 08/23/20 06:33: WBC 14.7 H D, RBC 3.75 L, Hgb 11.1 L, Hct 34.1 L, MCV 90.9, MCH 29.6, MCHC 32.6, RDW 12.8, Plt Count 227, MPV 10.1, Immature Gran % (Auto) 0.70 H, Immature Gran # (Auto) 0.10 H, Neutrophils % 75.6 H, Neutrophils % (Manual) 82 H, Lymphocytes % 10.9 L, Lymphocytes % (Manual) 8 L, Monocytes % 11.3 H, Monocytes % (Manual) 9, Eosinophils % 1.0, Basophils % 0.5, Basophils % (Manual) 1, Nucleated RBC % 0.0, Neutrophils # 11.1 H, Neutrophils # (Manual) 12.1 H, Lymphocytes # 1.60, Lymphocytes # (Manual) 1.2 L, Monocytes # 1.7 H, Monocytes # (Manual) 1.3 H, Eosinophils # 0.1, Basophils # (Manual) 0.1, Absolute Basophils 0.1, Platelet Estimate Normal, RBC Morphology Normal 08/23/20 06:33: Sodium 137, Plasma Sodium 137, Potassium 3.5, Chloride 99, Carbon Dioxide 29.7, Anion Gap 11.8, BUN 24 H, Creatinine 0.91, Est GFR (Non-Af Amer) 85 D, BUN/Creatinine Ratio 26.4 H, Random Glucose 105 D, Calcium 8.4, Calcium Adj for Albumin 9.5, Total Bilirubin 0.9, AST 194 H, ALT 65, Alkaline Phosphatase 58, Total Protein 5.7 L, Albumin 2.2 L 08/24/20 07:46: WBC 12.0 H, RBC 3.73 L, Hgb 11.0 L, Hct 35.0 L, MCV 93.8, MCH 29.5, MCHC 31.4 L, RDW 13.0, Plt Count 261, MPV 9.7, Immature Gran % (Auto) 0.90 H, Immature Gran # (Auto) 0.11 H, Neutrophils % 66.4, Lymphocytes % 16.7 L, Monocytes % 12.6 H, Eosinophils % 2.8, Basophils % 0.6, Nucleated RBC % 0.0, Neutrophils # 8.0 H, Lymphocytes # 2.00, Monocytes # 1.5 H, Eosinophils # 0.3, Absolute Basophils 0.1 08/24/20 07:46: Sodium 135, Plasma Sodium 135, Potassium 4.0, Chloride 99, Carbon Dioxide 30.2, Anion Gap 9.8, BUN 25 H, Creatinine 0.90, Est GFR (Non-Af Amer) 86, BUN/Creatinine Ratio 27.8 H, Random Glucose 97, Calcium 8.0, Calcium Adj for Albumin 9.3, Total Bilirubin 0.8, AST 163 H, ALT 97 H, Alkaline Phosphatase 57, Total Protein 5.2 L, Albumin 2.0 L 08/25/20 09:56: WBC 9.5 D, RBC 3.67 L, Hgb 10.8 L, Hct 33.5 L, MCV 91.3, MCH 29.4, MCHC 32.2, RDW 12.7, Plt Count 292, MPV 9.3, Immature Gran % (Auto) 0.60 H, Immature Gran # (Auto) 0.06 H, Neutrophils % 58.9, Lymphocytes % 23.5, Monocytes % 12.8 H, Eosinophils % 3.1 H, Basophils % 1.1 H, Nucleated RBC % 0.0, Neutrophils # 5.6, Lymphocytes # 2.23, Monocytes # 1.2 H, Eosinophils # 0.3, A bsolute Basophils 0.1 08/25/20 09:56: Sodium 134, Plasma Sodium 135, Potassium 4.1, Chloride 97, Carbon Dioxide 29.7, Anion Gap 11.4, BUN 22, Creatinine 0.90, Est GFR (Non-Af Amer) 86, BUN/Creatinine Ratio 24.4 H, Random Glucose 149 H D, Calcium 8.1, Calcium Adj for Albumin 9.4, Total Bilirubin 0.7, AST 97 H, ALT 96 H, Alkaline Phosphatase 60, Total Protein 5.3 L, Albumin 2.0 L 08/26/20 07:56: WBC 10.0, RBC 4.03 L, Hgb 11.7 L, Hct 36.7 L, MCV 91.1, MCH 29.0, MCHC 31.9 L, RDW 12.5, Plt Count 343, MPV 9.3, Immature Gran % (Auto) 0.80 H, Immature Gran # (Auto) 0.08 H, Neutrophils % 57.7, Lymphocytes % 25.5, Monocytes % 12.3 H, Eosinophils % 2.9, Basophils % 0.8, Nucleated RBC % 0.0, Neutrophils # 5.8, Lymphocytes # 2.54, Monocytes # 1.2 H, Eosinophils # 0.3, Absolute Basophils 0.1 08/26/20 07:56: Sodium 135, Plasma Sodium 136, Potassium 3.8, Chloride 98, Carbon Dioxide 30.8, Anion Gap 10.0, BUN 18, Creatinine 0.79, Est GFR (Non-Af Amer) 100, BUN/Creatinine Ratio 22.8 H, Random Glucose 161 H, Calcium 8.3, Calcium Adj for Albumin 9.4, Total Bilirubin 0.8, AST 85 H, ALT 101 H, Alkaline Phosphatase 66, Total Protein 6.2, Albumin 2.2 L Discharge Location: [facility] Disposition: SNF Condition: Good Level of Care: SNF Discharge Activity: Weight bearing Discharge Diet: Consistent [facility] Therapy: Physical Therapy, Occupation Therapy Referrals: Monie Knight MD [Primary Care Provider] - One Week (Video visit) Amari Barbour PA [[facility]] - Two Weeks Problem Oriented Discharge Instructions to Patient/Family: Community-Acquired Pneumonia, Adult, [id number], Simple Pelvic Fracture, Adult, Shoulder Dislocation, [id number] Additional Patient Instructions (free text): To [facility] for therapies, PT and OT to evaluate and treat. Weightbearing as tolerated through affected shoulder and lower extremities. Oxygen via Nasal canula at 2lpm to keep sats 90% or greater. May wean off of oxygen if Spo2 is 90% or greater on room air. Prescriptions (Any new or edited meds): Albuterol Sulfate/Ipratropium [Duoneb 2.5-0.5MG/3ML Soln] 3 ml IH Q6HRT PRN #60 nebu PRN Reason: Shortness Of Breath Transmission Status: Pending to [facility] traZODone HCL [Desyrel] 50 mg PO HS PRN #30 tab PRN Reason: Insomnia Transmission Status: Pending to [facility] Cefdinir [Omnicef] 300 mg PO Q12H #20 cap Transmission Status: Pending to [facility] traMADol HCL [Ultram] 50 mg PO Q6H PRN #60 tab PRN Reason: Moderate Pain (Pain Scale 4-6) Transmission Status: Sent to [facility] Complete Home Medications List: Complete Home Medication List: aspirin 81 mg tablet,delayed release 81 mg PO DAILY 03/14/18 bimatoprost 0.01 % eye drops 1 drp OP DAILY ml 03/14/18 cholecalciferol (vitamin D3) 25 mcg (1,000 unit) capsule 1,000 unit PO DAILY 03/14/18 bisoprolol 10 mg-hydrochlorothiazide 6.25 mg tablet 1 tab PO DAILY #180 tab 06/16/19 lovastatin 40 mg tablet See Rx Instructions .ROUTE .COMPLEX #180 unknown measurement unit code: not specified 04/03/20 timolol 0.25 % eye drops 1 drp OP DAILY 06/21/20 lisinopril 20 mg tablet 20 mg PO DAILY #90 tab 06/26/20 glipizide 5 mg tablet 7.5 mg PO DAILY #45 tab 07/17/20 blood-glucose meter See Rx Instructions .ROUTE .MEDSUPPLY #1 ea 08/08/20 lancets 28 gauge See Dose Instructions .ROUTE .MEDSUPPLY #100 ea 08/09/20 blood sugar diagnostic See Dose Instructions .ROUTE .MEDSUPPLY #100 ea 08/12/20 Acetaminophen [Tylenol] 1,000 mg PO Q6H PRN tablet 08/27/20 Albuterol Sulfate/Ipratropium [Duoneb 2.5-0.5MG/3ML Soln] 3 ml IH Q6HRT PRN #60 nebu 08/27/20 Cefdinir [Omnicef] 300 mg PO Q12H #20 cap 08/27/20 Polyethylene Glycol 3350 [Miralax] 17 gm PO DAILY packet 08/27/20 traMADol HCL [Ultram] 50 mg PO Q6H PRN #60 tab 08/27/20 traZODone HCL [Desyrel] 50 mg PO HS PRN #30 tab 08/27/20 Forms: Patient Portal Registration
[2020-08-27 12:37] VITALS: BP 120/64
[2020-08-27] MEDS ORDERED: SENNOSIDES/DOCUSATE SODIUM 1 TAB TABLET PO ONE (12:43)
[2020-08-27] MEDS ORDERED: SENNOSIDES 8.6 MG TABLET ONE (12:54)
[2020-08-27] MEDS ORDERED: SENNOSIDES/DOCUSATE SODIUM 1 TAB TABLET ONE (12:55)
== END 2020-08-27 13:30 | DRG 193 ==
LOC: ER 16:01 → INTOOBSV 21:20 → MS 21:20
PROVIDERS: ADMIT Family Medicine; ATTEND Family Medicine
DX: E11.649 Type 2 diabetes mellitus with hypoglycemia without coma; W19.XXXA Unspecified fall, initial encounter; S43.004A Unspecified dislocation of right shoulder joint, initial encounter; R55 Syncope and collapse; S32.89XA Fracture of other parts of pelvis, initial encounter for closed fracture; I95.2 Hypotension due to drugs; J96.01 Acute respiratory failure with hypoxia; J18.9 Pneumonia, unspecified organism